=== PATIENT | female | born 1940 | race Caucasian/White ===

== ENCOUNTER → 2016-11-28 | Outpatient (CLI) | payer MEDICARE, BC ==
[~2016-11-28] MED LIST: CHOL100018 PO; ESCI20TA30 PO; HYDR-4246 PO; L. A1CAP13 PO; LISI-126 PO; LORA0.5T86 PO; LORA2TAB81 PO; METR500T PO; PRAS25CA5 PO; PRAV20TA4 PO; VITA-302; [UNRECOGNIZED DRUG - CODE] PO; [UNRECOGNIZED DRUG - CODE] PO
--- NOTE | 2016-11-28 13:10 | DI ---
Indication: ITS.REASON: M89.8X9 BONE PAIN PROCEDURE: NM BONE SCAN, WHOLE BODY: Encounter: Subsequent Comparison: Bone scan dated February 03, [address] abdomen/pelvis dated January 22, 2016 and MRI thoracic spine dated February 17, 2015 Technique: 26.9 mCi of Tc-99m MDP was administered intravenously. Anterior and posterior planar whole-body and spot images were obtained. FINDINGS: Left kidney is absent. There is probable degenerative uptake seen in the ankles. Stable probable degenerative uptake in the left L5 region. There is also more focal uptake in the T3 region which has been seen on prior MRI and PET studies. No new areas of abnormal tracer accumulation. IMPRESSION: Stable bone scan with uptake in the T3 vertebra which was suspicious for metastatic disease on prior MRI and PET exam. No new abnormal bony uptake seen. .
== END ==
LOC: IMA 08:48
PROVIDERS: ATTEND Internal Medicine
DX: M89.8X8 Other specified disorders of bone, other site (principal)
CPT/HCPCS: 78306; A9503